=== PATIENT | male | born 1950 | race Caucasian/White ===

== ENCOUNTER 2024-12-27 15:01 | Emergency (ER) | payer MEDICARE, BC | END 2024-12-27 17:15 | disposition home or self-care (01) | LOC: JD.ED 15:01 | DX: M25.551 Pain in right hip (principal); M25.561 Pain in right knee; I10 Essential (primary) hypertension; Z88.8 Allergy status to other drugs, medicaments and biological substances; Z86.16 Personal history of COVID-19; X50.1XXA Overexertion from prolonged static or awkward postures, initial encounter | CPT/HCPCS: 73502-26-RT; 73502-RT; 73562-26-RT; 73562-RT; 99283 ==